=== PATIENT | male | born 1955 | race Caucasian/White ===

== ENCOUNTER → 2018-08-27 | Outpatient (CLI) | payer OTHER ==
[2015-07-03 16:50] VITALS: BP 138/79
--- NOTE | 2018-08-27 13:50 | RAD ---
Renal ultrasound. 08/27/2018 INDICATION: Diabetic kidney complication Discussion: Ultrasound evaluation of the kidneys was performed. Static images are submitted to PACS. No comparison studies available for review. Right kidney measures 12.3 x 6.6 x 5.1 cm. Left kidney measures 11.8 x 5.1 x 7.0 cm. Superior right kidney somewhat poorly visualized. Visualized kidneys demonstrate no hydronephrosis, nephrolithiasis, or focal renal lesion. The bladder is unremarkable in appearance. IMPRESSION: No sonographic evidence of acute abnormality Electronically signed by: Brandon Cardoza MD (08/27/2018 1:46 PM) [id number]
[2018-08-27 14:01] LABS: CALCIUM 9.5 mg/dL (8.5-10.1); POTASSIUM 3.9 mmol/L (3.5-5.1)
[2018-08-28 01:10] LABS: UR PROTEIN 10.5 mg/dL (Not Estab.)
== END | disposition home or self-care (01) ==
LOC: US 12:32
PROVIDERS: ATTEND Internal Medicine Nephrology
DX: E13.29 Other specified diabetes mellitus with other diabetic kidney complication (principal); E87.5 Hyperkalemia; Z68.28 Body mass index [BMI] 28.0-28.9, adult
CPT/HCPCS: 36415; 76770; 80048; 84156

== ENCOUNTER → 2018-10-31 | Outpatient (CLI) | payer OTHER ==
[2015-07-03 16:50] VITALS: BP 138/79
[2018-10-31 14:31] LABS: ALBUMIN 4.5 g/dL (3.4-5.0); CALCIUM 9.6 mg/dL (8.5-10.1); CREATININE 0.9 mg/dL (0.7-1.3); GFR 85.5; PHOSPHORUS 3.7 mg/dL (2.6-4.7); POTASSIUM 4.2 mmol/L (3.5-5.1)
== END | disposition home or self-care (01) ==
LOC: LAB 13:34
PROVIDERS: ATTEND Internal Medicine Nephrology
DX: E13.29 Other specified diabetes mellitus with other diabetic kidney complication (principal); E87.5 Hyperkalemia; Z68.28 Body mass index [BMI] 28.0-28.9, adult
CPT/HCPCS: 36415; 80069

== ENCOUNTER → 2019-04-24 | Outpatient (CLI) | payer OTHER ==
[2015-07-03 16:50] VITALS: BP 138/79
[2019-04-24 11:18] LABS: ALBUMIN 4.3 g/dL (3.4-5.0); CALCIUM 9.3 mg/dL (8.5-10.1); GFR 75.7; POTASSIUM 4.6 mmol/L (3.5-5.1)
== END | disposition home or self-care (01) ==
LOC: LAB 09:51
PROVIDERS: ATTEND Internal Medicine Nephrology
DX: E13.29 Other specified diabetes mellitus with other diabetic kidney complication (principal); I10 Essential (primary) hypertension; E78.5 Hyperlipidemia, unspecified; Z68.28 Body mass index [BMI] 28.0-28.9, adult
CPT/HCPCS: 36415; 80069

== ENCOUNTER → 2019-05-06 | Outpatient (CLI) | payer OTHER ==
[2015-07-03 16:50] VITALS: BP 138/79
[2019-05-06 11:14] LABS: ALBUMIN 4.4 g/dL (3.4-5.0); CALCIUM 9.4 mg/dL (8.5-10.1); CREATININE 1.1 mg/dL (0.7-1.3); GFR 67.8; PHOSPHORUS 3.6 mg/dL (2.6-4.7); POTASSIUM 4.7 mmol/L (3.5-5.1)
== END | disposition home or self-care (01) ==
LOC: LAB 10:24
PROVIDERS: ATTEND Nurse Practitioner Adult Health
DX: I10 Essential (primary) hypertension (principal); E87.5 Hyperkalemia
CPT/HCPCS: 36415; 80069

== ENCOUNTER → 2019-10-08 | Outpatient (CLI) | payer OTHER ==
[2015-07-03 16:50] VITALS: BP 138/79
--- NOTE | 2019-10-08 12:03 | RAD ---
EXAM: Left lower extremity arterial Doppler sonogram. HISTORY: Claudication. TECHNIQUE: Krueger scale and color Doppler sonographic imaging of the left lower extremity arteries with spectral waveform analysis was performed. COMPARISON: None. FINDINGS: There is atherosclerotic plaque throughout the left lower extremity arteries. There are normal peak systolic velocities and presently triphasic waveforms throughout the left lower extremity arteries. No severe stenosis or occlusion is seen. IMPRESSION: 1. Estimated plaque throughout the left lower extremity arteries. No severe stenosis or occlusion is seen. 2. Note is made of cardiac arrhythmia noted during the exam. Electronically signed by: Loly Lopez MD (10/08/2019 12:00 PM) [facility] [place]
== END | disposition home or self-care (01) ==
LOC: US 10:59
PROVIDERS: ATTEND Family Medicine
DX: I70.202 Unspecified atherosclerosis of native arteries of extremities, left leg (principal); I49.9 Cardiac arrhythmia, unspecified
CPT/HCPCS: 93926

== ENCOUNTER → 2019-10-09 | Outpatient (CLI) | payer OTHER ==
[2015-07-03 16:50] VITALS: BP 138/79
--- NOTE | 2019-10-09 10:26 | RAD ---
EXAM: Left lower extremity venous Doppler sonogram. HISTORY: Pain. TECHNIQUE: Krueger scale and color Doppler sonographic evaluation of the left lower extremity veins with spectral waveform analysis was performed. FINDINGS: There is normal color flow, normal compressibility and there are normal spectral waveforms in the common femoral, superficial femoral, popliteal, posterior tibial and greater saphenous veins. IMPRESSION: No Doppler evidence of lower extremity deep venous thrombosis. Electronically signed by: Loly Lopez MD (10/09/2019 10:23 AM) [facility] [place]
== END | disposition home or self-care (01) ==
LOC: US 09:37
PROVIDERS: ATTEND Family Medicine
DX: M79.605 Pain in left leg (principal)
CPT/HCPCS: 93971

== ENCOUNTER → 2019-10-28 | Outpatient (CLI) | payer OTHER ==
[2015-07-03 16:50] VITALS: BP 138/79
[2019-10-28 10:58] LABS: ALBUMIN 4.2 g/dL (3.4-5.0); CALCIUM 9.1 mg/dL (8.5-10.1); CREATININE 0.9 mg/dL (0.7-1.3); GFR 85.2; PHOSPHORUS 3.4 mg/dL (2.6-4.7)
[2019-10-28 21:06] LABS: UR PROTEIN 11.3 mg/dL (Not Estab.)
== END | disposition home or self-care (01) ==
LOC: LAB 09:47
PROVIDERS: ATTEND Nurse Practitioner Family
DX: I10 Essential (primary) hypertension (principal); E13.29 Other specified diabetes mellitus with other diabetic kidney complication; E87.5 Hyperkalemia; E87.1 Hypo-osmolality and hyponatremia; Z68.27 Body mass index [BMI] 27.0-27.9, adult
CPT/HCPCS: 36415; 80069; 84156

== ENCOUNTER 2020-04-13 10:01 | Observation (INO) | payer OTHER ==
[~2020-04-13] VITALS: Ht 170.2 cm; Wt 79.9 kg
--- NOTE | 2020-04-13 10:21 | PHYS DOC ---
Past History Past Medical History: Diabetes, Hypertension Past Surgical History: Other Alcohol Use: Heavy Drug Use: None Adult General Chief Complaint Chief Complaint: NEURO SYMPTOMS/DEFICITS [facility] HPI Patient is a 64-year-old male who presents for left lower face paralysis and left upper extremity motor weakness. Onset was 5 days ago with no inciting event or trauma. Nothing known made better or worse. Patient reported new onset left lower facial paralysis and slurred speech that worsened at 48-hour esperanza. Patient also reported associated left upper extremity motor weakness. Patient reports symptomology is improved greatly, reports being " 80% improved" since symptom onset. Reports taking all medications daily. Reports significant medical history for hypertension, diabetes, CAD, and previous CVA. Patient did not want to report today but did so at the request of his . Review of Systems Review of Systems Fourteen body systems of review of systems have been reviewed. See HPI for pertinent positives and negative responses, other sousa all other systems are negative, non-pertinent or non-contributory Allergies Allergies Allergies Coded Allergies Type Severity Reaction Last Updated Verified No Known Drug Allergies 07/03/15 No Physical Exam Physical Exam Constitutional: Well developed, well nourished, no acute distress, non-toxic appearance. HENT: Normocephalic, atraumatic, bilateral external ears normal, oropharynx moist, no oral exudates, nose normal. Eyes: PERRLA, EOMI, conjunctiva normal, no discharge. Neck: Normal range of motion, no tenderness, supple, no stridor. Cardiovascular: Heart rate regular, sinus rhythm, no murmurs rubs or gallops Lungs & Thorax: Bilateral breath sounds clear to auscultation Abdomen: Bowel sounds normal, soft, no tenderness, no masses, no pulsatile masses. Nonsurgical abdomen, no peritoneal signs Skin: Warm, dry, no erythema, no rash. Back: No tenderness, no CVA tenderness. Extremities: No tenderness, no cyanosis, no clubbing, ROM intact, no edema. Neurologic: Alert and oriented X3, normal motor & sensory function, focal deficits to left lower face noted with forehead sparing, mild slurring of speech and difficulty when smiling, cranial nerves II through XII otherwise fully intact Psychologic: Affect normal, judgement normal, mood normal. Current Patient Data Vital Signs Vital Signs Date Time Temp Pulse Resp B/P (MAP) Pulse Ox O2 Delivery O2 Flow Rate FiO2 04/13/20 11:10 82 16 162/85 (110) 99 04/13/20 10:51 98.4 71 16 146/77 (100) 95 Room Air Lab Results Laboratory Tests Test 04/13/20 10:24 White Blood Count 7.1 x10^3/uL Red Blood Count 4.63 x10^6/uL Hemoglobin 16.0 g/dL Hematocrit 46.4 % Mean Corpuscular Volume 100 fL Mean Corpuscular Hemoglobin 35 pg Mean Corpuscular Hemoglobin Concent 34 g/dL Red Cell Distribution Width 13.7 % Platelet Count 206 x10^3/uL Prothrombin Time 11.0 SEC Prothromb Time International Ratio 1.1 Activated Partial Thromboplast Time 26 SEC Sodium Level 136 mmol/L Potassium Level 4.4 mmol/L Chloride Level 99 mmol/L Carbon Dioxide Level 27 mmol/L Anion Gap 10 Blood Urea Nitrogen 21 mg/dL Creatinine 1.1 mg/dL Estimated GFR (Cockcroft-Gault) 67.6 Glucose Level 174 mg/dL Calcium Level 9.2 mg/dL Troponin I Quantitative < 0.017 ng/mL EKG EKG EKG ordered and interpreted by myself's 1020 hrs. as normal sinus rhythm at 83 bpm, unremarkable intervals, no axis deviation, no acute ischemic findings, no STEMI Radiology/Procedures Radiology/Procedures PROCEDURE: CT CODE STROKE HEAD WO EXAM: CT Head without IV contrast INDICATION: SLURRED SPEECH, WEAKNESS. On discussion with the referring physician, although the patient initially presented with strokelike symptoms, he was not clinically managed at this presentation as a code stroke because patient presented well outside the therapeutic window for intervention and by report, had been having spontaneously improving symptoms. TECHNIQUE: Multi-detector row CT images were obtained of the head without the use of IV contrast. All CT scans performed at this facility utilize dose optimization techniques as appropriate to the exam, including the following: Automated exposure control and adjustment of the mA and/or KV according to patient size (this includes techniques or standardized protocols for targeted exams where dose is indication/reason for exam). COMPARISON: None FINDINGS: BRAIN PARENCHYMA: No evidence of acute intraparenchymal hemorrhage or infarct. White matter low density compatible chronic ischemic microvascular changes present along with generalized parenchymal volume loss. Tiny, chronic appearing lacunar infarct in the right thalamus. VENTRICLES & EXTRA-AXIAL SPACES: Ventricles are within normal limits. Basilar cisterns are patent. No pathologic extra-axial fluid collection or mass. ORBITS: Orbital contents are unremarkable. SINUSES: Visualized paranasal sinuses and mastoid air cells are clear. OSSEOUS & SOFT TISSUES: Calvarium and skull base are intact. IMPRESSION: No acute intracranial pathology. This case became available to me for review and interpretation at 12:25 PM on 04/13/20 FOR INTERNAL CODING PURPOSES Critical result: Findings discussed with HILARIA MORALES at 04/13/2020 12:29 PM. RESULT CODE: (C) Course & Med Decision Making Course & Med Decision Making Airway patent, breathing unlabored, vital signs grossly unremarkable and well- appearing patient who self ambulated without difficulty to ER room Comprehensive history and physical exam obtained, concerning for stroke-like symptoms that are improving and outside window of any intervention, NIHSS 3 Pertinent labs and imaging obtained, non-concerning for emergent pathology at present ER course reviewed, discussed case with neurology, Dr. Guerra, who recommended further diagnostic work-up with CTA head and neck, initiation of Plavix, and obtaining fasting lipid profile Case discussed with hospitalist, Dr. Plascencia, who agreed patient required admission for further medical work-up and intervention Patient agreeable to plan as stated, all questions and concerns addressed prior to ER departure to [facility] ER for hospitalization and further medical management Dragon Disclaimer Dragon Disclaimer This electronic medical record was generated, in whole or in part, using a voice recognition dictation system. NIH Stroke Scale: NIH Stroke Scale Response (Comments) Value Level of Consciousness: 0 Alert/Responsive 0 LOC Questions: 0 Answers both correctly 0 LOC Commands: 0 Performs both tasks 0 Best Gaze: 0 Normal 0 Visual: 0 No visual loss 0 Facial Palsy: 2 Partial paralysis 2 Motor - Left Arm 0 No drift 0 Motor - Right Arm 0 No drift 0 Motor - Left Leg 0 No drift 0 Motor: Right Leg 0 No drift 0 Limb Ataxia: 0 Absent 0 Sensory: 0 No loss 0 Best Language: 1 Mild to mod aphasia 1 Dysathria: 0 Normal 0 Extinction and Inattention: 0 Normal 0 Total 3 Departure Departure: Impression: Primary Impression: TIA (transient ischemic attack) Additional Impressions: History of CVA (cerebrovascular accident) Type 2 diabetes mellitus Hypertension Disposition: 09 ADMITTED INPATIENT Admitting Physician: Amish Plascencia Condition: STABLE Referrals: MARIBEL BEATTY MD (PCP) Justification of Admission: Justification of Admission: Justification of Admission Dx: Yes (TIA, requires further inpatient medical evaluation, observation, and intervention) Problem Qualifiers HILARIA MORALES DO Apr 13, 2020 10:21
--- NOTE | 2020-04-13 10:24 | EKG ---
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
[2020-04-13 10:41] LABS: HEMATOCRIT 46.4 % (39.0-53.0); RED BLOOD COUNT 4.63 x10^6/uL (4.30-5.70); RED CELL DISTRIBUTION WIDTH 13.7 % (11.5-14.5); WHITE BLOOD COUNT 7.1 x10^3/uL (4.0-11.0)
[2020-04-13 10:52] LABS: CALCIUM 9.2 mg/dL (8.5-10.1); CREATININE 1.1 mg/dL (0.7-1.3); GFR 67.6; POTASSIUM 4.4 mmol/L (3.5-5.1)
--- NOTE | 2020-04-13 12:35 | RAD ---
EXAM: CT Head without IV contrast INDICATION: SLURRED SPEECH, WEAKNESS. On discussion with the referring physician, although the patient initially presented with strokelike symptoms, he was not clinically managed at this presentation as a code stroke because patient presented well outside the therapeutic window for intervention and by report, had been having spontaneously improving symptoms. TECHNIQUE: Multi-detector row CT images were obtained of the head without the use of IV contrast. All CT scans performed at this facility utilize dose optimization techniques as appropriate to the exam, including the following: Automated exposure control and adjustment of the mA and/or KV according to patient size (this includes techniques or standardized protocols for targeted exams where dose is indication/reason for exam). COMPARISON: None FINDINGS: BRAIN PARENCHYMA: No evidence of acute intraparenchymal hemorrhage or infarct. White matter low density compatible chronic ischemic microvascular changes present along with generalized parenchymal volume loss. Tiny, chronic appearing lacunar infarct in the right thalamus. VENTRICLES & EXTRA-AXIAL SPACES: Ventricles are within normal limits. Basilar cisterns are patent. No pathologic extra-axial fluid collection or mass. ORBITS: Orbital contents are unremarkable. SINUSES: Visualized paranasal sinuses and mastoid air cells are clear. OSSEOUS & SOFT TISSUES: Calvarium and skull base are intact. IMPRESSION: No acute intracranial pathology. This case became available to me for review and interpretation at 12:25 PM on 04/13/20 FOR INTERNAL CODING PURPOSES Critical result: Findings discussed with HILARIA MORALES at 04/13/2020 12:29 PM. RESULT CODE: (C) Electronically signed by: Maxine Sandoval MD (04/13/2020 12:32 PM) [id number]
[2020-04-13] MEDS ORDERED: CLOPIDOGREL BISULFATE 75 MG TABLET PO ONE (13:15)
[2020-04-13] MEDS ORDERED: IOHEXOL 350 MG/ML 100 ML VIAL. IV ONE (13:15)
[2020-04-13] MEDS ORDERED: CONTRAST GIVEN. MC PRN (13:30)
[2020-04-13 14:13] VITALS: BP 135/85
--- NOTE | 2020-04-13 14:29 | RAD ---
EXAM: CT Angiogram of the Head and Neck INDICATION: Reason: left facial paralysis / Spl. Instructions: / History: TECHNIQUE: CT images were obtained through the head per standard CTA protocol. Multiplanar and 3D reformatted images were generated from the CT dataset on an independent workstation. All CT scans performed at this facility utilize dose optimization techniques as appropriate to the exam, including the following: Automated exposure control and adjustment of the mA and/or KV according to patient size (this includes techniques or standardized protocols for targeted exams where dose is indication/reason for exam). IV CONTRAST: Administered COMPARISON: None FINDINGS: CTA HEAD: No high-grade large vessel stenosis, proximal or branch vessel occlusion, aneurysm, or vascular malformation. ANTERIOR CIRCULATION: Anterior and middle cerebral arteries are widely patent. ANTERIOR COMMUNICATING ARTERY: Patent. POSTERIOR COMMUNICATING ARTERIES: Present bilaterally and patent. POSTERIOR CIRCULATION: Vertebral and basilar arteries are widely patent. Bilateral posterior inferior cerebellar arteries (PICAs), anterior inferior cerebellar arteries (AICAs), and superior cerebellar arteries (SCAs) are visualized and patent. OTHER: No abnormal brain parenchymal enhancement. The paranasal sinuses, mastoid air cells, and tympanic cavities are clear. NECK CTA: AORTA: 3 vessel configuration of arch. No dissection or acute aortic injury. No hemodynamically significant great vessel origin stenosis. RIGHT CAROTID: Common and internal carotid arteries are widely patent, without evidence of flow limiting stenosis or dissection. Calcifications at the carotid bulb are present. LEFT CAROTID: Common and internal carotid arteries are widely patent, without evidence of flow limiting stenosis or dissection. Calcifications at the carotid bulb are present VERTEBRAL ARTERIES: Codominant. No evidence of dissection or flow limiting stenosis. SUBCLAVIAN ARTERIES:Subclavian arteries are patent without stenosis. SOFT TISSUES: Soft tissues show mucosal thickening in the paranasal sinuses best appreciated in the left frontal sinus.. Lung apices are clear. Bones show prior sternotomy with cerclage wires. Where applicable, evaluation of ICA stenosis was performed using NASCET criteria, where the site of greatest stenosis is compared to the diameter of the ICA distal to the carotid bulb. IMPRESSION: Normal CTA of the head and neck. FOR INTERNAL CODING PURPOSES Critical result: Findings discussed with HILARIA MORALES at 04/13/2020 2:24 PM. RESULT CODE: (C) Electronically signed by: Maxine Sandoval MD (04/13/2020 2:26 PM) [id number]
--- NOTE | 2020-04-13 15:20 | HP ---
ADMIT DATE: 04/13/2020 ADMISSION HISTORY AND PHYSICAL ATTENDING PHYSICIAN: Dr. Ambrosio. CHIEF COMPLAINT: Left-sided weakness. HISTORY OF PRESENT ILLNESS: The patient is a 64-year-old gentleman admitted through the ED with a 5-day history of waxing and waning symptoms, left lower facial paralysis, weakness in his left arm and the left leg. Onset was about 5 days ago without any inciting event or trauma. Since that time, he has some slurred speech that waxed and waned, worse is the 48-hour esperanza. No recent travel. By the time he got to the ED, he said his symptoms improved by 80%. He has significant risk factors for cerebrovascular disease. In the ED, the CT of the head showed no evidence of acute intracranial or intraparenchymal hemorrhage or infarct, chronic microvascular disease or changing and a small lacunar infarct. CT angiogram was pending. The patient's symptoms resolved. He was asked to be seen in consultation by Neurology services. They recommended Plavix to be initiated admission for overnight and observation. PAST MEDICAL HISTORY: Significant for coronary artery disease with previous coronary artery bypass and graft in 2013. He has essential hypertension and type 2 diabetes mellitus. CURRENT MEDICATIONS: He takes a blood pressure pill and medicine for the diabetes. He is unsure of the name and dosages were in the process of determining this. ALLERGIES: He has no known drug allergies. SOCIAL HISTORY: Unfortunately, he continues to smoke 1 package to 1-1/2 packs of cigarettes daily. He also drinks alcohol on a regular basis. His alcohol of choice is vodka mixed with 7-Up. He has not had any DUIs in the past. He is retired. FAMILY HISTORY: Father of heart disease at age 80. He says his mother is in fairly good health. REVIEW OF SYSTEMS: Significant for the lateralizing symptoms, left sided weakness and garbled speech, which is better. He still has some residual deficit. No fevers. No COVID exposure. He denied any chest pain, palpitations. He has had bypass surgery 6 years ago. All other systems reviewed and turned to be negative. PHYSICAL EXAMINATION: GENERAL: When I saw him, this is a pleasant, middle-aged gentleman. INITIAL VITAL SIGNS: In the ED showed a blood pressure 146/77 mmHg, temperature is 98.4 degrees Fahrenheit, oxygen saturation 95% on room air. HEENT: Head is without trauma. Pupils are reactive. Sclerae is nonicteric. Oropharynx clear. Tongue deviated ever so slightly to the left. NECK: Supple. I do not appreciate any bruits. Shoulder shrug was normal. LUNGS: Actually clear to auscultation. CARDIOVASCULAR: Regular heart tones. No gallops. Peripheral pulses are palpable and full. ABDOMEN: Soft, scaphoid, nontender, no organomegaly. Bowel sounds were hypoactive. EXTREMITIES: Showed no cyanosis or edema. NEUROLOGIC: Hub Cutter were symmetrical, equal. Upper and lower extremity tendon reflexes were equal and symmetrical in the upper and lower extremities. PERTINENT LABORATORY AND X-RAY STUDIES: Chemistry panel: His cardiac enzymes were negative initially for coronary ischemia. Nonfasting blood sugar 174 mg/dL, normal sodium, potassium, creatinine is 1.1 mg/dL, hemoglobin 16.0 g/dL with a white count of 7100. CT of the head as noted. CT angiogram is pending. ASSESSMENT: 1. A 64-year-old gentleman with transient ischemic attack symptoms resulting in a left sided hemiparesis and some expressive aphasia. Symptoms have improved since they started 5 days ago. 2. Essential hypertension. 3. Chronic obstructive pulmonary disease with continued tobacco use. 4. Coronary artery disease with previous history of coronary artery bypass graft. 5. Chronic alcoholism. 6. Type 2 diabetes mellitus. PLAN: 1. Admit to the inpatient unit. 2. Telemetry monitoring. 3. Plavix has been initiated. 4. CT angiogram. 5. Formal Neurology consultation with Dr. Guerra, we will see him later this admission. AGGIE AMBROSIO MD DR: RAQUEL/chalino JOB#: [id number] / [id number] MARIBEL Burrell MD
[2020-04-13] MEDS ORDERED: GLIM4TAB8 PO (16:51)
[2020-04-13] MEDS ORDERED: METO-239 PO (16:51)
[2020-04-13] MEDS ORDERED: ASPI-630 PO (16:51)
[2020-04-13] MEDS ORDERED: LOSA25TA11 PO (16:51)
[2020-04-13] MEDS ORDERED: METF10007 PO (16:51)
[2020-04-13] MEDS ORDERED: LOVA20TA2 PO (16:51)
[2020-04-13] MEDS ORDERED: METO2.5T PO (16:53)
[2020-04-13] MEDS: GLIMEPIRIDE 2 MG TABLET PO SCH (17:37)
[2020-04-13 19:26] VITALS: BP 129/80
--- NOTE | 2020-04-13 19:28 | NUR ---
The patient, LUIS FELIPE BEARDEN, 64 y/o, M admitted by AGGIE AMBROSIO MD, was given written information regarding hospital policies, unit procedures and contact persons. Valuables were checked and VS taken please see chart.
--- NOTE | 2020-04-13 20:30 | CONS ---
DATE OF CONSULTATION: 04/13/2020 NEUROLOGY CONSULTATION REFERRING PHYSICIAN: Dr. Plascencia. REASON FOR CONSULTATION: Rule out TIA versus stroke. HISTORY OF PRESENT ILLNESS: This is a 64-year-old right-handed male who has had a history of coronary artery disease and coronary artery bypass graft, was admitted through Emergency Room after he presented with 5-day history of intermittent left-sided weakness intermixed with left facial drooping and slurred speech. The symptoms have worsened in the last 48 hours. In the Emergency Room, the patient stated his symptoms have improved dramatically, but he continues to have mild weakness of the left upper and lower extremities. He denies headaches, diplopia or dysphagia. The patient stated he had difficulty finding words and speak, but the symptoms have improved recently. He also complains of impaired balance and he related that to previous left Achilles tendon tear. Currently, he denies chest pain, shortness of breath, palpitation, vertigo or paraesthesia. Initial nonenhanced head CT scan revealed no acute intracranial process, but shows chronic small vessel ischemic changes. CT angio of the head and neck revealed no significant abnormalities. The patient has been taking baby aspirin daily and was seen by a kiln labourer at [facility] a year ago. In the Emergency Room, the patient was placed on Plavix 75 mg daily. PAST MEDICAL HISTORY: Significant for coronary artery disease, required a coronary artery bypass graft in 2013; hypertension; hyperlipidemia; diabetes mellitus; smoking and drinking. The patient has nontraumatic left Achilles tendon tear diagnosed by MRI in October of 2018. PAST SURGICAL HISTORY: Positive for multiple laser surgery to the left eye because of possible bleed resulted in visual field abnormalities. SOCIAL HISTORY: The patient is . He smokes 1 to 1-1/2 packs of cigarettes daily. He drinks vodka twice daily. He has been drinking for long years. He is retired and lives with his at home. FAMILY HISTORY: Father at the age of 80 from heart disease. Mother is healthy. CURRENT HOME MEDICATIONS: Include aspirin 81 mg daily, glimepiride 4 mg p.o. daily, losartan 25 mg p.o. daily, lovastatin 20 mg p.o. daily, metformin 1000 mg twice daily, metolazone 2.5 mg 1-4 days a week and metoprolol XR 25 mg p.o. daily. ALLERGIES: No known drug allergies. REVIEW OF SYSTEMS: A 10-point review of system was performed as mentioned above in history of present illness, otherwise unremarkable. PHYSICAL EXAMINATION: GENERAL: Well-developed, well-nourished male, not in acute distress. He weighs 79.9 kilos. VITAL SIGNS: Blood pressure 129/80, respiratory rate 16, pulse is 85, temperature is 97.7, oxygen saturation 94% on room air. HEENT: Normocephalic, atraumatic, otherwise unremarkable. NECK: Supple. Negative for carotid bruit, lymphadenopathy or thyromegaly. LUNGS: Clear to A and P. CARDIOVASCULAR: Regular rate and rhythm. Normal S1, S2. There is no S3, S4 or murmur. ABDOMEN: Soft. Bowel sounds positive. EXTREMITIES: Negative for cyanosis, clubbing or edema. NEUROLOGICAL EXAMINATION: MENTAL STATUS: The patient is alert and oriented x 3. The speech is fluent. There is no language dysfunction. Memory, judgment, and abstracting thinking are normal. The patient denies hallucination or delusion. CRANIAL NERVES: Visual carmen are abnormal due to reduced visual acuity secondary to previous retinal bleeding. The visual field examination is not consistent. The pupils are equal and reactive to light and accommodation. The extraocular movements are intact. There is no nystagmus. There is no facial motor or sensory deficit. Hearing is intact bilaterally. The palate is elevated symmetrically. Sternocleidomastoid muscles are powerful bilaterally. The patient shrugs his shoulders symmetrically with ptosis. Tongue in the midline without fasciculation or atrophy. MOTOR: No focal muscle bulk was seen. The tone is normal. The strength is 5/5 throughout. SENSORY: Revealed normal pinprick, light touch, vibratory and position senses. Deep tendon reflexes were asymmetric and hypoactive at 1/4 throughout. GAIT: The gait is abnormal consistent with broad-base steps, probably due to previous Achilles tendon injuries. DIAGNOSTIC DATA: Initial nonenhanced CT scan and CT angio of the head and the neck as described above in the history of present illness. LABORATORY DATA: CBC revealed white blood cells of 7100, hemoglobin 16, hematocrit 46.4, platelet count 205,000. Chemistry revealed sodium of 135, potassium 4.4, chloride 99, CO2 of 27, BUN 21, creatinine 1.1, glucose 174, calcium 9.1. Troponin level is normal. Coagulation is normal. IMPRESSION: 1. Transient ischemic attack versus stroke. The patient continues to have a mild neurological residual. 2. Abnormal gait, probably due to previous left Achilles tendon tear. 3. Multiple high risk factor for stroke including heavy smoking, hyperlipidemia, hypertension, diabetes mellitus and coronary artery disease and family history of coronary artery disease. RECOMMENDATIONS: 1. We will check fasting lipid profile. 2. Continue his aspirin 81 mg and Plavix 75 mg p.o. daily. 3. Physical therapy evaluation. 4. Alcohol and smoking cessations. M Ankur MARTINO MD DR: URSZULA/chalino JOB#: [id number] / [id number]
[2020-04-13 23:38] VITALS: BP 151/90
[2020-04-14 05:13] VITALS: BP 152/91
[2020-04-14] MEDS ORDERED: CLOPIDOGREL BISULFATE 75 MG TABLET PO SCH (08:00)
[2020-04-14] MEDS: GLIMEPIRIDE 2 MG TABLET PO SCH (08:36)
[2020-04-14 08:37] VITALS: BP 152/91
[2020-04-14] MEDS ORDERED: LOSARTAN 25 MG TABLET. PO SCH (09:00)
[2020-04-14] MEDS ORDERED: METOPROLOL SUCC 24HR ER 25 MG TAB.ER.24H. PO SCH (09:00)
[2020-04-14] MEDS ORDERED: ASPIRIN CHEWABLE 81 MG TABLET. PO SCH (09:00)
[2020-04-14] MEDS ORDERED: ATORVASTATIN CALCIUM 10 MG TABLET. PO SCH (09:00)
--- NOTE | 2020-04-14 09:33 | PN ---
DATE: 04/14/2020 SUBJECTIVE: The patient denies any new medical or neurological complaints; however, he stated his speech is almost back to normal. He denies any headaches, chest pain, shortness of breath or palpitation, dysphagia, weakness or paresthesia. OBJECTIVE: GENERAL: Well-developed, well-nourished male, not in acute distress. VITAL SIGNS: Blood pressure 152/91, respiratory rate 18, pulse is 83, sinus, oxygen saturation is 94% on room air. HEENT: Normocephalic, atraumatic, otherwise unremarkable. NECK: Supple. Negative for carotid bruit, lymphadenopathy or thyromegaly. LUNGS: Clear to A and P. CARDIOVASCULAR: Regular rate and rhythm, normal S1, S2. ABDOMEN: Soft. Bowel sounds positive. EXTREMITIES: Negative for cyanosis, clubbing or edema. NEUROLOGICAL EXAM: Mental Status: The patient is alert and oriented x 3. Speech is more fluent. There is no language dysfunction. Memory, judgment, and abstracting thinking are normal. The patient denies hallucination or delusion. Cranial nerves are intact except for visual field defect secondary to previous eye surgeries. Motor examination: No focal muscle bulk was seen. The tone is normal. The strength is 5/5 throughout. Sensory examination revealed normal pinprick, light touch, vibratory and position senses. Deep tendon reflexes were symmetric and hypoactive with absent Achilles responses. Gait and coordination, the patient has broad-base steps. IMPRESSION: 1. Transient ischemic attack versus stroke. 2. Multiple stroke risk factors including hypertension, hyperlipidemia, diabetes mellitus, coronary artery disease, family history coronary of coronary artery disease, smoking and alcohol drinking. RECOMMENDATIONS: 1. Continue with current management and neurologic recommendations. 2. Follow up with Dr. Martino after 2 weeks from discharge. M Ankur MARTINO MD DR: URSZULA/chalino JOB#: [id number] / [id number]
--- NOTE | 2020-04-14 10:48 | NUR ---
NURSING NOTE DISCHARGE PT DISCHARGED HOME VIA AMBULATION PICKED UP BY , PT GIVEN WRITTEN AND VERBAL DISCHARGE INSTRUCTIONS. SCRIPT FOR PLAVIX SENT WITH PT. PT GIVEN EDUCATION ABOUT STROKE PREVENTION AND SIGNS AND SYMPTOMS, HAS FOLLOW UP WITH DR MARTINO SCHEDULED Monday AT 130 PM. NO COMPLICATIONS. DARCI DIA.
--- NOTE | 2020-04-14 10:57 | DS ---
DATE OF DISCHARGE: 04/14/2020 ATTENDING PHYSICIAN: Dr. Ambrosio. FINAL DISCHARGE DIAGNOSES: 1. Transient ischemic attack, symptoms resolved. 2. Left-sided hemiparesis, resolved. 3. Essential hypertension. 4. Chronic obstructive pulmonary disease with continued tobacco use. 5. Coronary artery disease with previous coronary artery bypass grafting. 6. Chronic alcoholism. 7. Type 2 diabetes. HISTORY AND PHYSICAL: This pleasant gentleman was admitted to the ED with a 5-day history of waxing and waning symptoms on the left facial paralysis, weakness in the left arm and leg. Onset 5 days, worse at the 48-hour esperanza. He was reluctant to come in by the time he got to the ED, his symptoms had improved by 80% he stated. Still has significant risk factors including previous coronary artery disease with bypass and graft. He continues to smoke excessively. The patient was admitted for treatment and evaluation. PHYSICAL EXAMINATION: Please see the dictated note. PERTINENT LABORATORY AND X-RAY STUDIES: Hemoglobin on admission was 16.0 g/dL with white count of 7100. His electrolytes within normal range. Nonfasting blood sugar 170. Repeated blood sugar was in 65 and 150. Troponin levels were negative for ischemia. He had the initial CT of the head, which showed no acute intracranial pathology. Ventricles are normal. No collection of fluid, mass or bleed. CT angiogram of the head and great vessels showed no evidence of dissection or acute aortic injury, hemodynamically patent. Carotids were patent without any evidence of limiting stenosis or dissection. Vertebral arteries are also free of stenosis. COURSE IN THE HOSPITAL: The patient was admitted. He was started on Plavix. Symptoms improved. Diet was advanced. Home meds continued. Dr. Guerra of the Neurology service saw him in consultation. His recommendation on the chart. Strong encouragement to continue the Plavix with aspirin and avoid further alcohol and tobacco use whether or not he will quit drinking or smoking remains to be seen. On the second hospital day, the patient was doing better. He was quite alert. He was back to his baseline. He had regained most of the strength. He had no focal deficits. Speech was entirely fluent and he wanted to go home. His blood pressure on the day of discharge was within range. His heart rate was regular. 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 His lungs were clear and he was ready for discharge. At this point, we recommend Plavix 75 mg daily, continue his aspirin 81 mg daily, glimepiride 4 mg b.i.d., losartan 25 mg daily, lovastatin 20 mg daily, metformin 1000 mg b.i.d. and metoprolol 25 mg daily. Strong encouragement for the patient to avoid further alcohol and tobacco use whether or not he will quit drinking and smoking remains to be seen. Dr. Guerra recommend a followup visit as an outpatient in 2 weeks. He also follow up with his primary care physician. He was discharged then from our hospital in stable condition with explicit instructions and followup care. AGGIE AMBROSIO MD DR: RAQUEL/chalino JOB#: [id number] / [id number] MARIBEL Burrell MD
[2020-04-15] MEDS ORDERED: metFORMIN 500 MG TABLET PO SCH (17:00)
== END 2020-04-14 10:40 | disposition home or self-care (01) ==
LOC: ER 10:01 → 1 SOUTH 12:55 → INTOOBSV 12:55
PROVIDERS: ADMIT Hospitalist; ATTEND Hospitalist
DX: G45.9 Transient cerebral ischemic attack, unspecified (principal); I10 Essential (primary) hypertension; J44.9 Chronic obstructive pulmonary disease, unspecified; F10.20 Alcohol dependence, uncomplicated; I25.10 Atherosclerotic heart disease of native coronary artery without angina pectoris; E11.9 Type 2 diabetes mellitus without complications; G81.94 Hemiplegia, unspecified affecting left nondominant side; F17.210 Nicotine dependence, cigarettes, uncomplicated; E78.5 Hyperlipidemia, unspecified; Z95.1 Presence of aortocoronary bypass graft; Z79.899 Other long term (current) drug therapy; Z79.02 Long term (current) use of antithrombotics/antiplatelets; Z79.82 Long term (current) use of aspirin; Z79.84 Long term (current) use of oral hypoglycemic drugs
CPT/HCPCS: 36415; 70450; 70496; 70498; 80048; 80061; 82947; 84484; 85027; 85610; 85730; 93005; 99285; G0378; Q9967; G0379

== ENCOUNTER 2021-05-11 09:11 | Inpatient (IN) | payer OTHER ==
[~2021-05-11] VITALS: Ht 170.2 cm; Wt 72.0 kg
[~2021-05-11 09:11] MED LIST: ASPI-630 PO; GLIM4TAB8 PO; LOSA25TA11 PO; LOVA20TA2 PO; METF10007 PO; METO-239 PO; METO2.5T PO
--- NOTE | 2021-05-11 09:31 | PHYS DOC ---
Past History Past Medical History: CAD, Diabetes, Hypertension, TIA Past Surgical History: Coronary Bypass Surgery Smoking: Cigarettes Alcohol Use: Occasionally Drug Use: None General Adult EDM: Chief Complaint: WEAKNESS/GENERALIZED HPI: HPI: 65-year-old male presents with left facial droop, left arm weakness, and left leg weakness that started on 05/06/21. Patient reports symptoms progressively worsened primarily to his left upper extremity that on 05/08/2021 he had limited range of motion about left arm. Patient reports history of prior TIA. Patient does report he typically takes a baby aspirin. Patient reports he did take a full-strength aspirin this morning at approximately 0700. Denies trauma. Denies headache. Denies fever or chills. Patient denies exposure to COVID-19. Patient does report COVID-19 vaccination with Kvng & Kvng vaccine. Review of Systems: Review of Systems: Constitutional: Denies fever or chills Eyes: Denies redness or eye pain HENT: Denies nasal congestion or sore throat Respiratory: Denies cough or shortness of breath Cardiovascular: Denies chest pain or palpitations GI: Denies abdominal pain, nausea, or vomiting : Denies dysuria or hematuria Musculoskeletal: Denies back pain or deformity Integument: Denies rash or skin lesions Neurologic: Denies headache or sensory changes; reports left sided weakness primarily to LUE Complete systems were reviewed and found to be within normal limits, except as documented in this note. Allergies: Allergies: Allergies Coded Allergies Type Severity Reaction Last Updated Verified No Known Drug Allergies 07/03/15 No Physical Exam: PE: Constitutional: Well developed, well nourished, no acute distress, non-toxic appearance HENT: Normocephalic, atraumatic Eyes: PERRL, EOMI, conjunctiva normal, no discharge Neck: Normal range of motion, no tenderness, supple Lungs & Thorax: No respiratory distress, equal chest rise and fall Abdomen: Soft, no tenderness Skin: Warm, dry, no erythema, no rash Extremities: No tenderness, ROM intact, no edema Neurologic: Alert and oriented X 3, mild left facial droop, left arm weakness 3/5 strength, fine motor coordination absent to left hand, left leg weakness 4/5 strength, RUE and RLE strength 5/5 Psychologic: Affect normal, judgment normal EKG: EKG: @0922 NSR at 76bpm with PACs, QRS 92ms, QT/QTc 362/4110ms, t wave inversions to I, avL, and V4-V6 Radiology/Procedures: Radiology/Procedures: CT HEAD W/O No evidence for acute intracranial abnormality. Volume loss and microvascular disease. CTA HEAD/NECK 1. No large vessel occlusion in the head or neck 2. Unchanged, approximately 50% narrowing of the supraclinoid internal carotid arteries bilaterally. 3. Unchanged severe narrowing of the right vertebral artery origin. 4. Unchanged mild narrowing of the proximal internal carotid arteries, 25% on the left and less than 20% on the right. Heart Score: C/O Chest Pain: N/A Course & Med Decision Making: Course & Med Decision Making Pertinent Labs and Imaging studies reviewed. (See chart for details) Patient presents with HPI and physical exam consistent for stroke with left- sided deficit. Onset of symptoms outside window of time for TPA or other intervention. CT head without acute process. CTA head/neck obtained without acute finding. EKG stable. Labs obtained and posted to chart. Patient reports taking a 325 mg aspirin this morning at 0700. Patient requiring admission for further evaluation and treatment. Discussed with Dr. Plascencia (hospitalist) who is in agreement with admission. Requests admission to ICU with heparin administration and neurology consultation. Orders placed. Discussed findings and plan with patient and family, who acknowledge understanding and agreement. Serafin Disclaimer: Sreafin Disclaimer: This electronic medical record was generated, in whole or in part, using a voice recognition dictation system. Departure Departure: Impression: Primary Impression: CVA (cerebral vascular accident) Qualified Codes: I63.9 - Cerebral infarction, unspecified Disposition: ADMITTED INPATIENT Admitting Physician: Amish Plascencia Condition: STABLE Referrals: MARIBEL BEATTY MD (PCP) NIHSS - ED NIH Stroke Scale: NIH Stroke Scale Response (Comments) Value Level of Consciousness: 0 Alert/Responsive 0 LOC Questions: 0 Answers both correctly 0 LOC Commands: 0 Performs both tasks 0 Best Gaze: 0 Normal 0 Visual: 0 No visual loss 0 Facial Palsy: 1 Minor paralysis 1 Motor - Left Arm 3 Limb falls 3 Motor - Right Arm 0 No drift 0 Motor - Left Leg 1 Drift but can hold 1 Motor: Right Leg 0 No drift 0 Limb Ataxia: 1 One limb 1 Sensory: 0 No loss 0 Best Language: 0 Normal 0 Dysathria: 0 Normal 0 Extinction and Inattention: 0 Normal 0 Total 6 Critical Care Time Critical care time was 30 minutes which includes time at bedside, spent in discussion of patient's care with specialists and/or family members, with interpretation of laboratory and/or radiological studies and is exclusive of procedures. ANUPAM CRAWFORD DO May 11, 2021 09:31
[2021-05-11 09:58] LABS: BASO # 0.1 x10^3/uL (0.0-0.2); BASO % 1 % (0-3); EOS # 0.1 x10^3/uL (0.0-0.7); EOS % 1 % (0-3); HEMATOCRIT 45.2 % (39.0-53.0); HEMOGLOBIN 15.4 g/dL (13.0-17.5); LYMPH # 1.5 x10^3/uL (1.0-4.8); LYMPH % 20 % (24-48); MEAN CORPUSCULAR HEMOGLOBIN 34 pg (25-35); MEAN CORPUSCULAR HGB CONC 34 g/dL (31-37); MEAN CORPUSCULAR VOLUME 98 fL (79-100); MONO # 0.6 x10^3/uL (0.0-1.1); MONO % 8 % (0-9); NEUT # 5.2 x10^3uL (1.8-7.7); NEUT % 70 % (31-73); PLATELET COUNT 221 x10^3/uL (140-400); RED BLOOD COUNT 4.59 x10^6/uL (4.30-5.70); WHITE BLOOD COUNT 7.4 x10^3/uL (4.0-11.0)
[2021-05-11 11:06] LABS: ANION GAP 8 (6-14); BLOOD UREA NITROGEN 23 mg/dL (8-26); BUN/CREATININE RATIO 29 (6-20); CALCIUM 9.3 mg/dL (8.5-10.1); CARBON DIOXIDE 29 mmol/L (21-32); CHLORIDE 101 mmol/L (98-107); CREATININE 0.8 mg/dL (0.7-1.3); GFR 97.3; GLUCOSE 162 mg/dL (70-99); SODIUM 138 mmol/L (136-145)
[2021-05-11 11:20] LABS: ALBUMIN 4.2 g/dL (3.4-5.0); ALBUMIN/GLOBULIN RATIO 1.2 (1.0-1.7); ALK PHOS 84 U/L (46-116); ALT (SGPT) 23 U/L (16-63); AST (SGOT) 13 U/L (15-37); MAGNESIUM 2.1 mg/dL (1.8-2.4); TOTAL BILIRUBIN 0.6 mg/dL (0.2-1.0); TOTAL PROTEIN 7.7 g/dL (6.4-8.2)
[2021-05-11] MEDS ORDERED: IOHEXOL 350 MG/ML 100 ML VIAL. IV ONE (11:30)
[2021-05-11] MEDS ORDERED: HEPARIN for IV BOLUS 10,000 UNIT/10 ML VIAL. IV ONE (13:15)
[2021-05-11] MEDS ORDERED: HEPARIN 25,000UTS/250ML PREMIX 250 ML IV PRN (13:15)
[2021-05-11] MEDS ORDERED: HEPARIN for IV BOLUS 10,000 UNIT/10 ML VIAL. IV PRN (13:15)
[2021-05-11] MEDS ORDERED: DEXTROSE 50% 25 GM / 50ML DISP.SYRIN. IV PRN (13:15)
--- NOTE | 2021-05-11 14:01 | EKG ---
[address] [address] Test Date: 2021-05-11 Test Time: 09:22:14 Pat Name: LUIS FELIPE BEARDEN Department: Room: Gender: M [employer] Admin: MARVIN : 1955 Requested By: ANUPAM CRAWFORD Order Number: [id number] Reading MD: Measurements Intervals [place] Rate: 76 P: 56 PA: 162 QRS: 56 QRSD: 92 T: 133 QT: 362 QTc: 411 Interpretive Statements SINUS RHYTHM ATRIAL PREMATURE COMPLEX(ES) QRS(T) CONTOUR ABNORMALITY CONSISTENT WITH ANTEROSEPTAL INFARCT PROBABLY OLD ST & T ABNORMALITY, CONSIDER ANTEROLATERAL ISCHEMIA OR LEFT VENTRICULAR STRAIN ABNORMAL ECG RI6.02 No previous ECG available for comparison
--- NOTE | 2021-05-11 14:02 | RAD ---
STUDY: CT angiography of the head and neck INDICATION: Left-sided weakness COMPARISON: CT head same date. CTA head and neck 04/13/2020 TECHNIQUE: Axial CT imaging of the head and neck utilizing angiography protocol and performed after t he intravenous administration of 100 mL Omnipaque 350 contrast. Multiplanar reformats and 3D MIP acqu isitions were obtained. Encountered areas of stenosis are measured per NASCET criteria. One or more of the following individualized dose reduction techniques were utilized for this examinat ion: 1. Automated exposure control 2. Adjustment of the mA and/or kV according to patient size 3. Use of iterative reconstruction technique. FINDINGS: CTA NECK: Arch/Proximal Great Vessels: Visualized portion of the arch is normal in caliber. There are surgical changes of CABG. Great vessel origins are patent. Carotid Bifurcation/Cervical ICA: The common carotid arteries are patent and normal in caliber. There are mild calcifications in the carotid bulbs and proximal internal carotid arteries. There is focal 25 percent narrowing of the left internal carotid artery due to calcifications. Focal, left than 20 p ercent narrowing of the right internal carotid artery due to calcifications. Vertebral Arteries: There is severe stenosis of the right vertebral artery origin due to calcificatio ns. The rest of the right vertebral artery is normal in caliber and well-opacified. The left vertebra l artery is normal caliber and well-opacified. CTA HEAD: Posterior Circulation: The intradural vertebral arteries are normal in caliber. There is mild atheros clerosis in the left intradural vertebral artery without narrowing. The basilar artery and superior c erebellar arteries are normal in caliber and patent. Posterior cerebral arteries are normal in calibe r and patent. Anterior Circulation: There are calcifications in the cavernous and supraclinoid internal carotid art eries resulting in approximately 50 percent narrowing of the supraclinoid internal carotid arteries b ilaterally. The middle cerebral arteries and anterior cerebral arteries are normal in caliber and pat ent. Veins: Dural venous sinuses are patent. IMPRESSION: 1. No large vessel occlusion in the head or neck. 2. Unchanged, approximately 50 percent narrowing of the supraclinoid internal carotid arteries bilate rally. 3. Unchanged severe narrowing of the right vertebral artery origin. 4. Unchanged mild narrowing of the proximal internal carotid arteries, 25 percent of the left and les s than 20 percent on the right. Electronically signed by: Elisa Seymour MD (05/11/2021 12:55 PM) [id number]
--- NOTE | 2021-05-11 14:02 | RAD ---
Exam Date: 05/11/2021 9:[address] HEAD/BRAIN WO Indication: Reason: left sided deficit since . Instructions: / History: . TECHNIQUE: Head CT was performed without intravenous contrast. One or more of the following dose re duction techniques were utilized: *Automated exposure control (AEC) *Adjustment of mA and/or kV according to patient size *Use of iterative reconstruction technique *CT scan done according to ALARA, or ALARA/IMAGE GENTLY FINDINGS: The ventricles and sulci are prominent consistent with cerebral volume loss. Patchy ill-defined low attenuation areas in the subcortical and periventricular white matter bilaterally are consistent with microvascular disease. There is no evidence of acute intracranial hemorrhage, extra-axial collecti on, mass effect, midline shift, or acute territorial infarct. No lesion of the skull base or the calv arium is seen. The visualized paranasal sinuses, mastoid air cells and orbits are normal in appearanc e. IMPRESSION: No evidence for acute intracranial abnormality. Volume loss and microvascular disease. Electronically signed by: Zhou Sims MD (05/11/2021 9:57 AM) [id number]
[2021-05-11] MEDS: INSULIN LISPRO 300 UNITS/3 ML VIAL. SQ SCH (17:00)
--- NOTE | 2021-05-11 17:45 | NUR ---
pt was admitted to icu bed 3. NIHSS completed. Cerda done, stopped d/t facial droop and pt made npo. speech consult placed. heparin gtt infusing. admission completed.
--- NOTE | 2021-05-11 18:18 | NUR ---
pt outside TPA window, is on heparin gtt Addendum: 05/11/21 at 1849 by PATEL GUTIERREZ RN Amended: Links added.
[2021-05-11 18:33] VITALS: BP 122/74
[2021-05-11 19:00] VITALS: BP 125/76
[2021-05-11] MEDS ORDERED: FLU VACC QUAD 21-22 (6MOS+) PF 0.5 ML SYRINGE. VAX IM ONE (19:00)
[2021-05-11] MEDS ORDERED: DULA1.5P SQ (19:00)
[2021-05-11 20:00] VITALS: BP 123/68
[2021-05-11 21:00] VITALS: BP 132/83
--- NOTE | 2021-05-11 21:00 | NUR ---
DR. MARTINO PAGED X2 FOR NEURO CONSULT, INITIALLY BY DAY SHIFT RN AND AGAIN AT 2044. AWAITING CALL BACK.
[2021-05-11 22:00] VITALS: BP 137/83
[2021-05-11 23:00] VITALS: BP 135/83
[2021-05-12] VITALS (20 sets, daily range): BP systolic 111–155; BP diastolic 62–99
[2021-05-12 00:29] LABS: BACTERIA,URINE 0 /HPF (0-FEW); BILIRUBIN,URINE NEG (NEG); CLARITY,URINE CLEAR; COLOR,URINE YELLOW; GLUCOSE,URINE 250 mg/dL (NEG); NITRITE,URINE NEG (NEG); RBC,URINE 0 /HPF (0-2); SQUAMOUS EPITHELIAL CELL,UR OCC /LPF; WBC,URINE OCC /HPF (0-4)
--- NOTE | 2021-05-12 03:54 | NUR ---
Pt has been NPO overnight. Pt only urinating approx. 100 ml each time he uses the urinal. Pt reports it is typical for him to have frequency with limited output. UA collected and sent to lab per ED order. Speech clear, able to follow directions. Pt still with Left facial drooping, flaccid LUE and LLE weakness.
[2021-05-12] MEDS: INSULIN LISPRO 300 UNITS/3 ML VIAL. SQ SCH ×3 (08:00→17:00)
[2021-05-12] MEDS ORDERED: CONTRAST GIVEN. MC PRN (12:00)
--- NOTE | 2021-05-12 12:34 | HP ---
ADMIT DATE: 05/11/2021 ATTENDING PHYSICIAN: Dr. Plascencia. CHIEF COMPLAINT: Left-sided weakness. HISTORY OF PRESENT ILLNESS: The patient is a 65-year-old gentleman well known to us from previous admission for TIA symptoms in 07/2020. He has multiple risk factors including diabetes, hypertension and continued tobacco use, and hyperlipidemia. He developed 3 days ago gradual worsening left-sided weakness. Speech has been spared. He has significant weakness and flaccid paralysis of his left hand. He is able to bear some weight, but he favors the right side. In the ED, he had a CT scan yesterday, which was negative for acute stroke. Most likely he will need an MRI. He had a left facial droop, left arm weakness, tired since 05/06. He is out of the window of any TPA. He is admitted then for further treatment and evaluation. PAST MEDICAL HISTORY: Significant for a short admission in July with TIA symptoms. At that time, I believe I sent him home with aspirin and Plavix. He has not continued the medicine for unknown apparent reasons. He has coronary artery disease, diabetes, hypertension, TIA. He has had previous coronary artery bypass and graft. ALLERGIES: He has no known drug allergies. CURRENT MEDICATIONS: Reviewed. He was on aspirin 81 mg daily, Trulicity, glimepiride 4 mg b.i.d., losartan, lovastatin, metformin, and metoprolol. SOCIAL HISTORY: He is a smoker, a pack of cigarettes daily. He is retired from the [employer]. He does not drink alcohol. FAMILY HISTORY: Father at a young age in an accident. Mom is still alive at age 86 in good health. He is retired. No COVID exposure. REVIEW OF SYSTEMS: All other systems reviewed and turned to be negative. PHYSICAL EXAMINATION: GENERAL: When I saw him, this is a pleasant gentleman. He was alert. He had noticeable left-sided weakness. INITIAL VITAL SIGNS: Showed a blood pressure 138/82, pulse is 84 and regular. He is afebrile. Oxygen saturation 97% on room air. HEENT: Head is without trauma. Pupils are reactive. Sclerae nonicteric. Oropharynx clear. NECK: Supple. LUNGS: Clear. CARDIOVASCULAR: Regular heart tones. ABDOMEN: Soft. EXTREMITIES: Without edema. NEUROLOGIC: He has a noticeable left-sided facial droop. The left arm is hemiparetic with a flaccid paralysis. The right leg is weak, but he is still able to bear weight. Speech is intact. PERTINENT LABORATORY AND X-RAY STUDIES: Admission hemoglobin was 15.4 g/dL, white count 7400. Electrolytes within normal range. Nonfasting blood sugar 162. CT of the head and CT angiogram showed volume loss and microvascular disease. No acute strokes or bleeds identified. There is no evidence of large vessel occlusion. There is unchanged 50% narrowing of the supraclinoid internal carotid arteries, bilateral. There is severe narrowing of the right vertebral artery origin. ASSESSMENT: 1. A 65-year-old gentleman with a completed stroke of the right middle cerebral artery distribution with associated left-sided facial droop and hemiparesis. His speech is intact. 2. History of transient ischemic attacks, last year. 3. Hypertension. 4. Hyperlipidemia. 5. Continued tobacco addiction. 6. Type 2 diabetes. PLAN: 1. Admit to the intensive care unit. 2. I have started a heparin drip last night, pending formal Neurology consultation. Later today, I will stop the drip and put him on Plavix 75 mg p.o. daily. 3. Diabetes, controlled. 4. Continue home medications. 5. Formal neurology consultation. 6. Physical therapy. 7. Occupational therapy. 8. Speech therapy. 9. Swallow evaluation prior to feeding him RAQUEL/LETICIA DR: RAQUEL/chalino TID: [id number] CC: MARIBEL BEATTY MD
[2021-05-12] MEDS ORDERED: metFORMIN 500 MG TABLET PO SCH (17:00)
[2021-05-12] MEDS ORDERED: ASPIRIN ENTERIC COATED 81 MG TABLET.DR. PO ONE (17:30)
[2021-05-12] MEDS: GLIMEPIRIDE 2 MG TABLET PO SCH (17:39)
[2021-05-12] MEDS: CLOPIDOGREL BISULFATE 75 MG TABLET PO SCH (17:39)
[2021-05-13] VITALS (11 sets, daily range): BP systolic 115–166; BP diastolic 67–114
[2021-05-13] MEDS: INSULIN LISPRO 300 UNITS/3 ML VIAL. SQ SCH ×3 (08:00→17:00)
[2021-05-13] MEDS ORDERED: FLU VACC QUAD 21-22 (6MOS+) PF 0.5 ML SYRINGE. VAX IM ONE (09:00)
--- NOTE | 2021-05-13 11:11 | NUR ---
Patient passed his swallow study test therefore this RN will administer oral medications at this time. ST recommended thin liquids, no straws, regular diet, and pills taken one at a time.
[2021-05-13] MEDS: METOPROLOL SUCC 24HR ER 25 MG TAB.ER.24H. PO SCH (11:23)
[2021-05-13] MEDS: ASPIRIN CHEWABLE 81 MG TABLET. PO SCH (11:23)
[2021-05-13] MEDS: ATORVASTATIN CALCIUM 10 MG TABLET. PO SCH (11:23)
[2021-05-13] MEDS: LOSARTAN 25 MG TABLET. PO SCH (11:24)
[2021-05-13] MEDS: GLIMEPIRIDE 2 MG TABLET PO SCH ×2 (11:24→17:00)
[2021-05-13] MEDS: CLOPIDOGREL BISULFATE 75 MG TABLET PO SCH (11:24)
--- NOTE | 2021-05-13 11:45 | RAD ---
DG VIDEO SWALLOW STUDY Reason for Examination: Reason: dysphagia / Spl. Instructions: / History: With the patient in the lateral projection, using video observation and recording, the patient was as ked to swallow barium liquid, barium nectar, barium impregnated pudding, and chew and swallow barium impregnated mixed consistency and cracker. Single episode of shallow penetration with nectar consistency. No penetration or aspiration with river tional consistencies. Interpretation: Performed by speech pathologist and certified neurodiagnostic technologist. Total fluoroscopy time was less than 5 minutes. Fluoroscopic spot images: Multiple fluoroscopy saves. Impression: 1. Single episode of shallow penetration with nectar consistency. No aspiration. Please refer to speech pathology notes for further details. Electronically signed by: Lokesh Mann DO (05/13/2021 11:43 AM) [id number]
--- NOTE | 2021-05-13 16:15 | EKG ---
[address] [address] Test Date: 2021-05-13 Test Time: 14:52:53 Pat Name: LUIS FELIPE BEARDEN Department: Room: [facility] 1 Gender: M Emergency Management System Director: : 1955 Requested By: JEANE SYKES Order Number: [id number] Reading MD: Measurements Intervals [place] Rate: 72 P: 31 NM: 154 QRS: 59 QRSD: 92 T: 160 QT: 364 QTc: 400 Interpretive Statements SINUS RHYTHM ATRIAL PREMATURE COMPLEX(ES) ST & T ABNORMALITY, CONSIDER LATERAL ISCHEMIA OR LEFT VENTRICULAR STRAIN T ABNORMALITY IN INFEROLATERAL LEADS ABNORMAL ECG RI6.01 No previous ECG available for comparison
[2021-05-13] MEDS: metFORMIN 500 MG TABLET PO SCH (17:00)
--- NOTE | 2021-05-14 01:59 | CONS ---
NEUROLOGY CONSULTATION REFERRING PHYSICIAN: Dr. Sanchez. REASON FOR CONSULTATION: Acute stroke. HISTORY OF PRESENT ILLNESS: This is a 65-year-old right-handed male who was admitted through Emergency Room on 05/11/2021 on account of a sudden onset of left-sided weakness and facial drooping. According to the patient, the symptoms started approximately a week ago, but getting worse three days later and presented with marked weakness of the left upper and lower extremities with a facial drooping. He denies headaches. He has had visual disturbances secondary to diabetic retinopathy and loss of peripheral visual carmen. The patient denies dysarthria or dysphagia. The patient was seen by me in 03/2020 when he had a TIA and multiple risk factors for stroke including diabetes mellitus, hypertension, hyperlipidemia, and severe coronary artery disease, required coronary artery bypass graft. The patient denies chest pain, shortness of breath or palpitation. Initial nonenhanced head CT scan revealed no acute intracranial process, but it showed chronic small vessel ischemic disease. CT angio of the head and neck revealed unchanged 50% of narrowing of bilateral supraclinoid internal carotid artery and severe narrowing of the right vertebral artery at the origin, along was mild narrowing of the proximal internal carotid disease. PAST MEDICAL HISTORY: Significant for severe coronary artery disease, required coronary artery bypass graft in 2013, multiple risk factors include coronary artery disease, hypertension, hyperlipidemia, diabetes mellitus, smoking and drinking. History of nontraumatic left Achilles tendon tear diagnosed by MRI in 10/2018. PAST SURGICAL HISTORY: Positive for coronary artery bypass graft along with left eye laser surgery due to bleed secondary to diabetes retinopathy resulted in visual field defects bilaterally. FAMILY HISTORY: Father at age of 80 from heart disease and mother is healthy. CURRENT MEDICATIONS: Metformin 1000 mg twice daily, Lipitor 5 mg daily, metoprolol succinate 25 mg p.o. daily, losartan 25 mg p.o. daily, aspirin 81 mg p.o. daily, Plavix 75 mg p.o. daily, Amaryl 4 mg p.o. ____, Humalog insulin on sliding scale. ALLERGIES: No known drug allergies. REVIEW OF SYSTEMS: A 10-point review of system was performed and as mentioned above in history of present illness consistent with left-sided weakness and left facial drooping, otherwise unremarkable. SOCIAL HISTORY: The patient is . The patient is retired. He smokes 1 pack of cigarettes daily. He quit alcohol drinking. He denies illegal drug use. PHYSICAL EXAMINATION: GENERAL: A well-developed, well-nourished male in no acute distress. He weighs 72 kilos. VITAL SIGNS: Blood pressure 115/67, respiratory rate 14, pulse is 74, oxygen saturation is 98% on room air, and temperature is 98.6. HEENT: Normocephalic, atraumatic, otherwise unremarkable. NECK: Supple, negative for carotid bruit, lymphadenopathy, or thyromegaly. LUNGS: Clear to A and P. CARDIOVASCULAR: Regular rate and rhythm, normal S1, S2. ABDOMEN: Soft. Bowel sounds positive. EXTREMITIES: Negative for cyanosis, clubbing, or pedal edema. NEUROLOGIC: Mental status: The patient is alert and oriented x3. Speech is fluent. There is no language dysfunction. Memory, judgment, and abstracting thinking are normal. The patient denies hallucination or delusion. Cranial nerves: Pupils are equal and reactive to light and accommodation. The extraocular movements are intact. There is no nystagmus. There is bilateral visual carmen defect secondary to previous left eye surgery and diabetic retinopathy. There is a mild left facial asymmetry on smiling. The palate is elevated symmetrically. Sternocleidomastoid muscles are powerful bilaterally. The patient shrugs his shoulders symmetrically and protrudes his tongue in the midline without fasciculation or atrophy. Motor examination: Revealed dense left hemiparesis, more prominent in the left upper extremity with stroke type of weakness. The strength is 3/5 in the left online trader and left upper extremity and 4/5 in the left lower extremity. The strength on the right side is 5/5 throughout. Sensory examination: Revealed normal pinprick, light touch, vibratory and position senses. Deep tendon reflexes were symmetric and hypoactive at 1/4 throughout. Gait: The patient has difficulty to stand and make any steps due to previous left Achilles tendon tear. LABORATORY DATA: CBC revealed white cells of 7.4 thousand, hemoglobin 15.4, hematocrit 45.2, platelet count 221,000. Chemistry revealed sodium of 138, potassium 4, chloride 101, CO2 of 29, BUN 23, creatinine 0.8, glucose 162, calcium 9.3. Liver enzymes are not elevated. Troponin level is normal. Lipid profile is unremarkable with low HDL. Urinalysis is negative for urinary tract infections. CoV-2 PCR and rapid is negative. DIAGNOSTIC: Head CT scan and CT angio of the neck and head as described above in the history of present illness. Video swallowing study revealed a single episode of shallow penetration without aspiration. IMPRESSION: 1. Acute stroke, presented with left hemiparesis, more prominent in the face and left upper extremities. 2. Multiple risk factors for stroke including diabetes mellitus, hypertension, and history of hyperlipidemia, severe coronary artery disease, required coronary artery bypass graft and possible paroxysmal atrial fibrillation, not present today, along with smoking. RECOMMENDATIONS: 1. Cardiology consult with [facility]. 2. Continue with aspirin and Plavix. 3. The patient needs Holter monitoring to rule out paroxysmal AFib. 4. Treat the underlying risk factor for stroke. 5. Brain MRI. 6. Aggressive physical therapy and stroke rehabilitation. 7. Smoking cessation. NELLY DR: Heydi TID: [id number]
[2021-05-14 05:55] VITALS: BP 144/73
[2021-05-14 07:27] LABS: CALCIUM 9.5 mg/dL (8.5-10.1); CREATININE 0.6 mg/dL (0.7-1.3); GFR 135.6; MAGNESIUM 2.1 mg/dL (1.8-2.4); POTASSIUM 4.1 mmol/L (3.5-5.1)
[2021-05-14 08:00] VITALS: BP 130/83
[2021-05-14] MEDS: INSULIN LISPRO 300 UNITS/3 ML VIAL. SQ SCH ×3 (08:00→17:00)
[2021-05-14] MEDS: ATORVASTATIN CALCIUM 10 MG TABLET. PO SCH (08:17)
[2021-05-14] MEDS: METOPROLOL SUCC 24HR ER 25 MG TAB.ER.24H. PO SCH (08:18)
[2021-05-14] MEDS: LOSARTAN 25 MG TABLET. PO SCH (08:18)
[2021-05-14] MEDS: GLIMEPIRIDE 2 MG TABLET PO SCH ×2 (08:18→17:25)
[2021-05-14] MEDS: CLOPIDOGREL BISULFATE 75 MG TABLET PO SCH (08:18)
[2021-05-14] MEDS: ASPIRIN CHEWABLE 81 MG TABLET. PO SCH (08:18)
[2021-05-14] MEDS: metFORMIN 500 MG TABLET PO SCH ×2 (08:18→17:25)
--- NOTE | 2021-05-14 08:54 | PN ---
DATE: 05/13/2021 SUBJECTIVE: The patient is sitting at the edge of the bed comfortably, in no apparent distress, able to stand and walk. He apparently did well on his video swallowing evaluation. However, he continued to have marked weakness of his left upper extremity, particularly distally. PHYSICAL EXAMINATION: GENERAL: When I examined him, he looked well and was clearly in no apparent respiratory distress. No pallor, jaundice, cyanosis, or thyromegaly. No jugular venous distention. No limb edema. VITAL SIGNS: His heart rate was 87, blood pressure was 166/96, temperature was 98.7, respiratory rate 21, and oxygen saturation was 97% on room air. HEAD, EYES, EARS, NOSE, AND THROAT: Normocephalic, atraumatic. NECK: Supple. HEART: Showed normal first and second heart sounds. No gallop or murmur. CHEST: Showed central trachea, equal bilateral chest expansion, air entry, vesicular breath sounds. No crepitation or rhonchi. ABDOMEN: Distended, soft, nontender. NEUROLOGIC: He is awake, alert, responding appropriately. Mild left sided facial droop and left sided hemiplegia, more so in the left upper extremity than lower extremity. His intake and output are incompletely recorded. LABORATORY DATA: His lab work showed a white cell count of 7400, hemoglobin 15, hematocrit 45, MCV 98 and platelet count 221,000 with normal manual differential. His chemistry showed a serum sodium of 138, potassium 4, chloride 101, bicarbonate 29, anion gap of 8, BUN 23, creatinine 0.8. Estimated GFR was 97 mL per minute. His glucose was 162, calcium was 9.3, magnesium was 2.1. Total bilirubin, AST, ALT, alkaline phosphatase were normal. CK was 62. First set of troponin was less than 0.017. His fasting lipid profile showed serum triglycerides of 95. Total cholesterol 134, LDL cholesterol was 78, VLDL was 19, HDL was 37, and cholesterol to HDL cholesterol ratio was 3. CT scan of the head showed ____ evidence of acute intracranial abnormality, volume loss, and microvascular disease. CT angio of the head and neck showed: 1. No evidence of large vessel occlusion in the head or neck 2. Unchanged approximately 50% narrowing of the supraclinoid internal carotid arteries bilaterally. 3. Unchanged severe narrowing of the right vertebral artery origin. 4. Unchanged mild narrowing of the proximal internal carotid arteries, 25% to the left and less than 20% on the right. ASSESSMENT: 1. In summary, this is a 65-year-old male patient who was admitted with right middle cerebral artery territory infarct with left sided facial droop and hemiparesis. The patient has no ____ and he did well on his video swallowing evaluation. 2. Has had a history of transient ischemic attack last year. 3. Hypertension. 4. Hyperlipidemia. 5. Type 2 diabetes mellitus. 6. The patient quit smoking only last week. 7. The patient seems to be in atrial fibrillation with controlled ventricular rate. PLAN: To continue with physical and occupational therapy. He is now on Plavix and aspirin. We did consult the Cardiology, I think he is in AFib and also the neurologist. JULIANNA/VIK/NICK DR: Law TID: [id number]
--- NOTE | 2021-05-14 09:48 | PN ---
SUBJECTIVE: The patient denies any new medical or neurological complaints. He continues to have severe paralysis of the left upper extremity. OBJECTIVE: GENERAL: Well-developed, well-nourished male in no acute distress. VITAL SIGNS: Blood pressure 144/73, respiratory rate 18, pulse is 98, oxygen saturation is 97% on room air. HEENT: Normocephalic, atraumatic, otherwise unremarkable. NECK: Supple, negative for carotid bruit, lymphadenopathy or thyromegaly. LUNGS: Clear to A and P. CARDIOVASCULAR: Regular rhythm. Normal S1, S2. ABDOMEN: Soft. Bowel sounds positive. EXTREMITIES: Negative for cyanosis, clubbing or pedal edema. NEUROLOGIC: Mental status: The patient is alert and oriented x 3. Speech is fluent. There is no language dysfunction. Otherwise, unremarkable. Cranial nerves are intact except for mild left facial asymmetry. Motor examination revealed marked paresis of the left upper extremity and the strength is 4/5 in the left lower extremity. The strength also was 5/5 throughout. Sensory examination revealed normal pinprick, light touch, vibratory and position senses. Deep tendon reflexes were symmetric and hypoactive 20/4 throughout. The patient cannot walk secondary to a left Achilles tendon tender. IMPRESSION: 1. A dense left hemiparesis, more prominent in the face and left upper extremity, likely due to acute stroke. 2. Atrial fibrillation. 3. Multiple stroke risks including hypertension, hyperlipidemia, diabetes mellitus, smoking, severe coronary artery disease and recurrent transient ischemic attacks. 4. Old left Achilles tendon tear. RECOMMENDATIONS: 1. With atrial fibrillation, today, the patient may need anticoagulation as Eliquis. 2. Continue with previous neurological recommendations. SHERIN DR: Heydi TID: [id number]
[2021-05-14] MEDS: POLYETHYLENE GLYCOL 3350 17 GM PACKET. PO SCH (10:18)
[2021-05-14 11:14] VITALS: BP 129/73
--- NOTE | 2021-05-14 13:23 | PDOC2 ---
CONSULT DOS: DATE: 05/14/21 TIME: 13:17 Reason for Consult: Paroxysmal atrial fibrillation. Referring Physician: Dr. Molina Chief Complaint Left-sided facial weakness Source: Chart review, Patient Problem List Problems Medical Problems: (1) CVA (cerebral vascular accident) Status: Acute History of Present Illness The patient is a 65-year-old male who was admitted through the emergency room 2 days ago with new onset of left-sided facial drooping and left leg weakness. Patient has been worked up and diagnosed as having a CVA with a CT scan of the head and neck showing no large vessel disease. He has a history of a TIA, coronary disease with bypass surgery, hypertension and diabetes. He has been seen by the neurology service and is presently on aspirin and Plavix. We have been asked see the patient for episodes of paroxysmal atrial fibrillation. Patient has borderline atrial fibrillation on several strips overnight. He reports a history of heart arrhythmias but no clear atrial fibrillation. He reports feeling significantly better today. Cardiovascular: CAD, CHF, HTN, hyperipidemia Endocrine: Diabetes Past Surgical History: CABG Family History: Heart Disease Smoke: <1 pack per day ALCOHOL: occassional Current Medications Current Medications Iohexol (Omnipaque 350 Mg/ml) 100 ml 1X ONCE IV Last administered on 05/11/21at 11:35; Start 05/11/21 at 11:30; Stop 05/11/21 at 11:32; Status DC Heparin Sodium/ Dextrose 250 ml @ 9.5 mls/hr CONT PRN IV SEE I/O RECORD Last administered on 05/11/21at 13:54; Start 05/11/21 at 13:15; Stop 05/12/21 at 17:44; Status DC Heparin Sodium (Porcine) (Heparin Sodium) 4,000 unit 1X ONCE IV Last administered on 05/11/21at 13:52; Start 05/11/21 at 13:15; Stop 05/11/21 at 13:29; Status DC Heparin Sodium (Porcine) (Heparin Sodium) 2,000 unit PRN Q6HRS PRN IV FOR PTT LESS THAN 24 SECONDS; Start 05/11/21 at 13:15; Stop 05/12/21 at 17:44; Status DC Insulin Human Lispro (HumaLOG) 0-5 UNITS TIDWMEALS SQ Last administered on 05/13/21at 12:00; Start 05/11/21 at 17:00 Dextrose (Dextrose 50%-Water Syringe) 12.5 gm PRN Q15MIN PRN IV SEE COMMENTS; Start 05/11/21 at 13:15 Influenza Virus Vaccine Quadrival (Flulaval Quad Syringe) 0.5 ml ONCE ONCE VAX IM ; Start 05/11/21 at 19:00; Stop 05/11/21 at 19:01; Status Cancel Influenza Virus Vaccine Quadrival (Flulaval Quad Syringe) 0.5 ml ONCE ONCE VAX IM Last administered on 05/13/21at 14:03; Start 05/13/21 at 09:00; Stop 05/13/21 at 09:01; Status DC Aspirin (Aspirin Chewable) 81 mg DAILY PO Last administered on 05/14/21at 08:18; Start 05/13/21 at 09:00 Losartan Potassium (Cozaar) 25 mg DAILY PO Last administered on 05/14/21at 08 :18; Start 05/13/21 at 09:00 Metoprolol Succinate (Toprol Xl) 25 mg DAILY PO Last administered on 05/14/21at 08:18; Start 05/13/21 at 09:00 Non-Formulary Medication (Dulaglutide (Trulicity)) 0.5 ml WEEKLY SQ ; Start 05/19/21 at 09:00; Stop 05/13/21 at 14:49; Status DC Glimepiride (Amaryl) 4 mg BIDWMEALS PO Last administered on 05/14/21at 08:18; Start 05/12/21 at 17:00 Atorvastatin Calcium (Lipitor) 5 mg DAILY PO Last administered on 05/14/21at 08:17; Start 05/13/21 at 09:00 Metformin HCl (Glucophage) 1,000 mg BIDWMEALS PO ; Start 05/12/21 at 17:00; Status Cancel Clopidogrel Bisulfate (Plavix) 75 mg DAILYWBKFT PO Last administered on 05/14/21at 08:18; Start 05/12/21 at 17:30 Aspirin (Aspirin Enteric Coated) 81 mg 1X ONCE PO Last administered on 05/12/21at 17:39; Start 05/12/21 at 17:30; Stop 05/12/21 at 17:32; Status DC Metformin HCl (Glucophage) 1,000 mg BIDWMEALS PO Last administered on 05/14/21at 08:18; Start 05/13/21 at 17:00 Info (Do NOT chart on this entry -- for MONITORING) 1 each PRN DAILY PRN MC SEE COMMENTS; Start 05/12/21 at 12:00; Stop 05/13/21 at 11:59; Status DC Polyethylene Glycol (miraLAX) 17 gm DAILY PO Last administered on 05/14/21at 10:18; Start 05/14/21 at 10:15 Active Scripts Active Reported Trulicity (Dulaglutide) 1.5 Mg/0.5 Ml Pen.injctr 0.5 Ml SQ WEEKLY Metoprolol Succinate ( Xl ) (Metoprolol Succinate) 25 Mg Tab.er.24h 1 Tab PO DAILY Metformin Hcl 1,000 Mg Tablet 1 Tab PO BID Lovastatin 20 Mg Tablet 1 Tab PO DAILY Losartan Potassium (Losartan Potassium) 25 Mg Tablet 25 Mg PO DAILY Glimepiride 4 Mg Tablet 1 Tab PO BID Aspirin 81 Mg Tab.chew 81 Mg PO DAILY Allergies: Coded Allergies: No Known Drug Allergies (Unverified , 07/03/15) General: YES: Fatigue Neurological: YES: Other (Facial drooping) General: No acute distress HEENT: Atraumatic Lungs: Clear to auscultation Heart: Regular rate Abdomen: Normal bowel sounds VITALS Vital Signs Date Time Temp Pulse Resp B/P (MAP) Pulse Ox O2 Delivery O2 Flow Rate FiO2 05/14/21 12:00 Room Air 05/14/21 11:14 98.3 76 18 129/73 (91) 96 Labs Laboratory Tests Test 05/12/21 16:18 05/13/21 07:54 05/13/21 11:38 05/13/21 13:57 Glucose (Fingerstick) 148 mg/dL (70-99) 168 mg/dL (70-99) 309 mg/dL (70-99) 254 mg/dL (70-99) Test 05/13/21 16:56 05/13/21 19:49 05/14/21 06:11 05/14/21 07:58 Glucose (Fingerstick) 55 mg/dL (70-99) 215 mg/dL (70-99) 217 mg/dL (70-99) Sodium Level 138 mmol/L (136-145) Potassium Level 4.1 mmol/L (3.5-5.1) Chloride Level 101 mmol/L (98-107) Carbon Dioxide Level 26 mmol/L (21-32) Anion Gap 11 (6-14) Blood Urea Nitrogen 14 mg/dL (8-26) Creatinine 0.6 mg/dL (0.7-1.3) Estimated GFR (Cockcroft-Gault) 135.6 Glucose Level 165 mg/dL (70-99) Calcium Level 9.5 mg/dL (8.5-10.1) Magnesium Level 2.1 mg/dL (1.8-2.4) Images CT scanning of the head and neck shows no large vessel occlusion. Assessment/Plan 1. CVA. Clinically improved. Followed by neurology. Echo with bubble study pending. If patient requires a [facility] this will need to be done at [place]. 2. History of bypass surgery. No chest pain or shortness of breath. We will continue baseline medications. 3. Episodes of probable paroxysmal atrial fibrillation. Rate is under better control. At this time would consider treatment with Eliquis if okay with neurology. Would hold the patient's aspirin if Eliquis is started. 4. Hypertension. Continue present medical treatment. 5. Diabetes mellitus. Continue present treatment. JARED TORREZ MD May 14, 2021 13:23
--- NOTE | 2021-05-14 15:04 | DS ---
DATE OF DISCHARGE: 05/14/2021 HOSPITAL COURSE: The patient is a 65-year-old male patient who was admitted on 05/12/2021 with weakness involving his left side that has started about 3 days ago. He has significant weakness and flaccid paralysis of his left hand. He is able to bear some weight, but he favors the right side. In the Emergency Room, he had a CT scan that was negative for acute stroke, had left sided facial droop, left arm weakness. The weakness started since 05/06 and he is outside the window for TPA and was admitted for further treatment and evaluation. 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 The CT angio of the head and neck showed no large vessel occlusion in the head or neck, unchanged approximately 50% narrowing of the supraclinoid internal carotid arteries bilaterally. He has unchanged severe narrowing of the right vertebral artery origin and unchanged mild narrowing of the proximal internal carotid arteries, 25% on the left and less than 20% on the right. The patient basically did well and a decision was made to discharge him home to continue physical therapy as an outpatient. PHYSICAL EXAMINATION: GENERAL: The patient, when I saw him this afternoon, he looked well and was clearly in no apparent respiratory distress. No pallor, jaundice, cyanosis; no lymphadenopathy, no thyromegaly, no jugular venous distention. No lower limb edema. VITAL SIGNS: His heart rate was 76, blood pressure was 129/72, temperature was 98.3, respiratory rate was 16 and oxygen saturation was 96% on room air. HEAD, EYES, EARS, NOSE, AND THROAT: Normocephalic, atraumatic. NECK: Supple. HEART: Showed normal first and second heart sounds, no gallop, rub or murmur. CHEST: Clear to auscultation, no crepitation or rhonchi. ABDOMEN: Distended, soft, nontender. NEUROLOGIC: He is awake, alert, responding appropriately. All cranial nerves intact. He has a dense left sided weakness, more in the left upper extremity than lower extremity, the patient is able to ambulate, has no dysphasia or aphasia. His intake over the last 24 hours was incompletely recorded. LABORATORY DATA: This morning showed a serum sodium of 138, potassium 4.1, chloride 101, bicarbonate 26, anion gap of 11, BUN 14, creatinine 0.6. Estimated GFR was 135 mL per minute. His glucose 165, calcium was 9.5, magnesium was 2.1. His white cell count was 7400, hemoglobin 15, hematocrit 45, MCV 98 and platelet count 221,000. DISCHARGE MEDICATIONS: The patient was discharged home to continue on the following medications: Plavix 75 mg once a day, aspirin 81 mg once a day, Trulicity 1.5 mg 0.5 mL subcutaneously weekly, glimepiride 4 mg twice a day, losartan potassium 25 mg once a day, lovastatin 20 mg daily, metformin 1000 mg twice a day, metoprolol succinate 25 mg daily. FINAL DISCHARGE DIAGNOSES: 1. 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 2. Coronary artery disease status post coronary artery bypass graft surgery, paroxysmal atrial fibrillation, hypertension, type 2 diabetes mellitus and hyperlipidemia. He apparently was seen by the neurologist who recommended anticoagulation with Eliquis, so the patient will be discharged also with Eliquis and I will discontinue his aspirin. THADDEUS DR: Law TID: [id number]
--- NOTE | 2021-05-14 16:26 | CARD ---
MR#: [id number] Date of Study: 05/14/2021 Ordering Physician: VAIBHAV NEAL, Referring Physician: VAIBHAV NEAL, Tech: Steve Ramirez [facility] APPROVED REPORT EXAM: Two-dimensional and M-mode echocardiogram with Doppler and color Doppler. Other Information Quality : AverageHR: 74bpm Rhythm : NSR INDICATION CVA/TIA Echo Enhancing Agent Indication: Rule Out Septal Defect Agent/Amount Used: Agitated [id number] Surgery/Intervention CABG: RISK FACTORS Hypertension Hyperlipidemia Family History Diabetes Smoking CAD, COPD 2D DIMENSIONS Left Atrium(2D)4.6 (1.6-4.0cm)IVSd1.2 (0.7-1.1cm) Aortic Root(2D)3.4 (2.0-3.7cm)LVDd3.8 (3.9-5.9cm) LVOT Diameter1.9 (1.8-2.4cm)PWd1.2 (0.7-1.1cm) LVDs2.8 (2.5-4.0cm)FS (%) 27.0 % SV33.2 mlLVEF(%)53.3 (>50%) Aortic Valve AoV Peak Mendel.112.9cm/sAoV VTI21.7cm AO Peak GR.5.1mmHgLVOT Peak Mendel.92.3cm/s LVOT VTI 19.02cmAO Mean GR.3mmHg JULITO (VMAX)2.68nl9MZE (VTI)2.61cm2 Mitral Valve MV E Nsmjxlaz39.0cm/sMV E Peak Gr.3mmHg MV DECEL [id number] A Vmfayfyt09.3cm/s MV E Mean Gr.1mmHgE/A Ratio1.4 Pulmonary Valve PV Peak Gdpazqvc48.3cm/sPV Peak Grad.2mmHg Tricuspid Valve TR P. Frbbzodg411gw/sTR Peak Gr.12mmHg Pulmonary Vein S1 Nxfgsaqq88.1cm/sD2 Czkzkjqn02.6cm/s LEFT VENTRICLE The left ventricle is normal size. There is mild concentric left ventricular hypertrophy. The left ve ntricular systolic function is normal and the ejection fraction is within normal range. LV ejection f raction is 50 to 55% There is normal LV segmental wall motion. No left ventricle thrombus noted on th is study. There is no ventricular septal defect visualized. There is no left ventricular aneurysm. Th ere is no mass noted in the left ventricle. RIGHT VENTRICLE The right ventricle is normal size. There is normal right ventricular wall thickness. The right ventr icular systolic function is normal. ATRIA The left atrium is mildly dilated. The right atrium is borderline dilated. Interatrial septum is inta ct without evidence of ASD or PFO, noted on 2-D,Doppler imaging. Negative bubble study. AORTIC VALVE The aortic valve is normal in structure and function. Doppler and Color Flow revealed no significant aortic regurgitation. There is no significant aortic valvular stenosis. There is no aortic valvular v egetation. MITRAL VALVE The mitral valve is normal in structure and function. There is no evidence of mitral valve prolapse. There is no mitral valve stenosis. Doppler and Color-flow revealed mild mitral regurgitation. TRICUSPID VALVE The tricuspid valve is normal in structure and function. Doppler and Color Flow revealed trace to mil d tricuspid regurgitation. There is no tricuspid valve prolapse or vegetation. There is no tricuspid valve stenosis. PULMONIC VALVE The pulmonary valve is normal in structure and function. Doppler and Color Flow revealed no pulmonic valvular regurgitation. There is no pulmonic valvular stenosis. GREAT VESSELS The aortic root is normal in size. The ascending aorta is normal in size. The pulmonary artery is nor mal. The IVC is normal in size and collapses >50% with inspiration. PERICARDIAL EFFUSION There is no pleural effusion. There is no evidence of significant pericardial effusion. Critical Notification Critical Value: No <Conclusion> The left ventricle is normal size. The left ventricular systolic function is normal and the ejection fraction is within normal range. LV ejection fraction is 50 to 55% There is mild concentric left ventricular hypertrophy. Interatrial septum is intact without evidence of ASD or PFO, noted on 2-D,Doppler imaging. Negative bubble study. Doppler and Color Flow revealed no significant aortic regurgitation. There is no significant aortic valvular stenosis. Doppler and Color-flow revealed mild mitral regurgitation. Doppler and Color Flow revealed trace to mild tricuspid regurgitation. Signed by : Shubham Chisholm MD Electronically Approved : 05/14/2021 16:25:56
[2021-05-14] MEDS: APIXABAN 5 MG TABLET. PO SCH (19:42)
[2021-05-14 19:44] VITALS: BP 134/84
[2021-05-14 23:19] VITALS: BP 153/78
--- NOTE | 2021-05-15 01:27 | PN ---
DATE: 05/14/2021 SUBJECTIVE: The patient is sitting at the edge of the bed comfortably, in no apparent distress. He is awake, alert, continued to have dense paralysis of the left upper extremity and left side facial droop. He is able to walk. He apparently was accepted at [facility]; however, they have no bed today and will be able to take him tomorrow. He was seen by the radiation protection technician as well as neurologist, both felt the patient has paroxysmal atrial fibrillation and recommended starting him on Eliquis, to hold aspirin. PHYSICAL EXAMINATION: GENERAL: When I examined him this afternoon, he looked well and was clearly in no apparent respiratory distress. No pallor, jaundice, cyanosis or thyromegaly. No jugular venous distention. No lower limb edema. VITAL SIGNS: His heart rate was 76, blood pressure was 129/73, temperature 98.3, respiratory rate was 18 and oxygen saturation was 96%. HEAD, EYES, EARS, NOSE AND THROAT: Normocephalic, atraumatic. NECK: Supple. HEART: Showed normal first and second heart sounds. No gallop or murmur. CHEST: Clear to auscultation. No crepitation or rhonchi. ABDOMEN: Distended, soft, nontender. NEUROLOGIC: He was awake, alert, responding appropriately. He has left-sided facial droop and dense left-sided hemiparesis denser in his left upper extremity. LABORATORY DATA: Serum sodium this morning was 138, potassium 4.1, chloride 101, bicarbonate 28, anion gap of 11, BUN 14, creatinine 0.6. Estimated GFR was 135 mL per minute. His glucose 165, calcium was 9.5 and magnesium was 2.1. ASSESSMENT: 1. Right middle cerebral artery territory infarct with left-sided hemiparesis denser in his left upper extremity than left lower extremity and has multiple other medical problems including previous history of transient ischemic attack. 2. Hypertension. 3. Hyperlipidemia. 4. Type 2 diabetes mellitus. 5. The patient quit smoking only last week. 6. He has paroxysmal atrial fibrillation with controlled ventricular rate for which he was started on Eliquis and his aspirin was discontinued. PLAN: He will be discharged tomorrow to [facility]. JULIANNA/JUAN DR: Law TID: [id number]
[2021-05-15 05:46] VITALS: BP 152/77
[2021-05-15] MEDS: POLYETHYLENE GLYCOL 3350 17 GM PACKET. PO SCH (07:59)
[2021-05-15] MEDS: metFORMIN 500 MG TABLET PO SCH (07:59)
[2021-05-15] MEDS: INSULIN LISPRO 300 UNITS/3 ML VIAL. SQ SCH ×2 (08:00→12:00)
[2021-05-15] MEDS: ATORVASTATIN CALCIUM 10 MG TABLET. PO SCH (08:00)
[2021-05-15] MEDS: GLIMEPIRIDE 2 MG TABLET PO SCH (08:00)
[2021-05-15] MEDS: APIXABAN 5 MG TABLET. PO SCH (08:01)
[2021-05-15] MEDS: METOPROLOL SUCC 24HR ER 25 MG TAB.ER.24H. PO SCH (08:02)
[2021-05-15] MEDS: LOSARTAN 25 MG TABLET. PO SCH (08:02)
--- NOTE | 2021-05-15 09:57 | PN ---
SUBJECTIVE: The patient denies any new medical or neurological complaints. He continues to have weakness of the left upper extremity. He denies chest pain, shortness of breath or palpitation. OBJECTIVE: GENERAL: Well-developed, well-nourished male in no acute distress. VITAL SIGNS: Blood pressure 152/77, respiratory rate 20, pulse is 89 irregular. Oxygen saturation 94% on room air. HEENT: Normocephalic, atraumatic, otherwise unremarkable. NECK: Supple, negative for carotid bruit, lymphadenopathy or thyromegaly. LUNGS: Clear to A and P. CARDIOVASCULAR: Irregularly irregular rhythm, normal S1, S2. ABDOMEN: Soft. Bowel sounds positive. EXTREMITIES: Negative for cyanosis, clubbing or pedal edema. NEUROLOGIC: Normal mental status and intact cranial nerves except for mild left facial asymmetry. Motor examination consistent with left dense hemiparesis, more prominent in the left upper extremity. Sensory examination revealed normal pinprick, light touch, vibratory and position senses. Deep tendon reflexes were symmetric and hypoactive with absent Achilles responses. The stance is steady, uses a walker for ambulation. IMPRESSION: 1. Status post acute stroke resulted in a left hemiparesis, more prominent in the left upper extremity and mild left facial asymmetry. 2. Multiple risk factors including hypertension, hyperlipidemia, diabetes mellitus, recurrent transient ischemic attacks, severe coronary artery disease, required a coronary artery bypass graft and smoking. RECOMMENDATIONS: 1. Continue with current management initiated by Dr. Molina. 2. Aggressive physical therapy and rehabilitation. 3. Follow up with Dr. Guerra for stroke rehabilitation. URSZULA/DAVIDA DR: Heydi TID: [id number]
[2021-05-15 10:43] VITALS: BP 111/67
[2021-05-15] MEDS: CLOPIDOGREL BISULFATE 75 MG TABLET PO SCH (10:45)
--- NOTE | 2021-05-15 12:58 | NUR ---
[facility]. PATIENT WAS INSTRUCTED TO FOLLOW UP WITH DR MARTINO, TEL NUMBER PROVIDED TO MAKE AN APPOINTMENT. THIS RN CALLED REHAB CENTER TO GIVE REPORT ON THE PATIENT, NURSE WAS NOT AVAILABLE, THIS RN LEFT TEL NUMBER FOR CALL BACK AND REPORT.
--- NOTE | 2021-05-15 13:05 | NUR ---
PATIENT LEFT UNIT VIA W/C ACCOMP BY STAFF MEMBER. PATIENT IS TAKEN TO REHAB FACILITY BY TRANSPORTATION PROVIDED BY FACILITY.
[2021-05-19] MEDS ORDERED: DULAGLUTIDE SQ SCH (09:00)
[2021-05-21] MEDS ORDERED: APIXABAN 5 MG TABLET. PO SCH (21:00)
== END 2021-05-15 13:05 | disposition home or self-care (01) | DRG 65 ==
LOC: ER 09:11 → ICU 13:09 → ER 17:32 → ICU 05-14 15:36 → 1 SOUTH 05-14 17:25
PROVIDERS: ADMIT Hospitalist; ATTEND Hospitalist
DX: I63.89 Other cerebral infarction (principal); G81.94 Hemiplegia, unspecified affecting left nondominant side; I11.0 Hypertensive heart disease with heart failure; I25.10 Atherosclerotic heart disease of native coronary artery without angina pectoris; I48.0 Paroxysmal atrial fibrillation; E78.5 Hyperlipidemia, unspecified; E11.319 Type 2 diabetes mellitus with unspecified diabetic retinopathy without macular edema; F17.210 Nicotine dependence, cigarettes, uncomplicated; I50.9 Heart failure, unspecified; R29.810 Facial weakness; Z95.1 Presence of aortocoronary bypass graft; Z86.73 Personal history of transient ischemic attack (TIA), and cerebral infarction without residual deficits; Z20.822 Contact with and (suspected) exposure to COVID-19
CPT/HCPCS: 36415; 70450; 70496; 70498; 74230; 80048; 80053; 80061; 81001; 82553; 82947; 83735; 84443; 84484; 85025; 85730; 87426; 90471; 90686; 93005; 93306; 96365; 96366; 96376; 99406; J1644; J1815; Q9967; U0003; 92610; 92611; 97110; 97530; 99291-25

== ENCOUNTER → 2021-11-09 | Outpatient (CLI) | payer MEDICARE, OTHER ==
[~2021-11-09] MED LIST changes: +DULA1.5P SQ
--- NOTE | 2021-11-09 10:44 | RAD ---
Exam performed: X-ray left shoulder. HISTORY: Left shoulder pain. DATE OF SERVICE: 11/09/2021. COMPARISON: None available FINDINGS: AP view of the left shoulder in internal and external rotation and Y view is obtained. Normal alignme nt of the glenohumeral and acromioclavicular joint is maintained. There is no acute fracture or dislo cation. No soft tissue swelling or foreign body seen. The visualized left lung is clear. Previous med shen sternotomy. IMPRESSION: No acute bony abnormality seen in the left shoulder. End impression. CT of the chest without IV contrast. Technique: Low-dose CT study. History: Tobacco use. Lung cancer screening. Patient has been a smoker for 45 years, 1-2 pack Comparison: None available. Lungs/pleura: There is a 4 mm pleural-based nodularity abutting the left lateral diaphragmatic surfac e, best seen on axial image 228, series 5 and coronal image 63, series 3. There is a tiny 2 to 3 mm p leural-based nodule in the posterior right upper lobe, axial image 59, 5. There is a similar 3 mm non calcified nodule in the posterior left upper lobe, axial image 89, series 5 No airspace consolidation or pleural effusion is identified. Mediastinum/hilum: No enlarged mediastinal or hilar lymph nodes are identified. Cardiovascular: The thoracic aortic caliber is within normal limits with mild atheromatous calcificat ions.. There is extensive calcification involving the coronary arteries Upper abdomen: Evaluation of the solid abdominal organs is very limited due to the low dose technique , lack of IV contrast, and partial nonvisualization. Bones: No suspicious lytic or blastic bone lesion is identified. No suspicious pulmonary nodule. Lung RADS 3 : Probably benign nodules. Management: Short-term interval chest CT in 6months recommended. PQRS Compliance Statement: One or more of the following individualized dose reduction techniques were utilized for this examinat ion: 1. Automated exposure control 2. Adjustment of the mA and/or kV according to patient size 3. Use of iterative reconstruction technique Electronically signed by: Estelle Marte MD (11/09/2021 10:41 AM) [facility]
== END ==
LOC: RAD 09:05
PROVIDERS: ATTEND Family Medicine
DX: Z12.2 Encounter for screening for malignant neoplasm of respiratory organs (principal); R91.8 Other nonspecific abnormal finding of lung field; I70.0 Atherosclerosis of aorta; I25.10 Atherosclerotic heart disease of native coronary artery without angina pectoris; F17.211 Nicotine dependence, cigarettes, in remission; M25.512 Pain in left shoulder
CPT/HCPCS: 71250; 73030